=== PATIENT | female | born 1990 | race Caucasian/White ===

== ENCOUNTER 2019-02-12 21:38 | Inpatient (IN) | payer OTHER ==
[2019-02-12 23:25] LABS: ADD UMIC YES; UR ASCORBIC ACID NEGATIVE (NEGATIVE); UR BACTERIA FEW /HPF (NONE SEEN); UR BILIRUBIN (Dip) NEGATIVE (NEGATIVE); UR BLOOD (Dip) NEGATIVE (NEGATIVE); UR CLARITY CLOUDY (CLEAR); UR COLOR YELLOW (YELLOW); UR GLUCOSE (Dip) NEGATIVE (NEGATIVE); UR KETONES (Dip) NEGATIVE (NEGATIVE); UR LEUKOCYTE ESTERASE (Dip) 3+ Leu/ul (NEGATIVE); UR NITRITE (Dip) NEGATIVE (NEGATIVE); UR RBC 10 /HPF (0-5); UR SPECIFIC GRAVITY (Dip) 1.022 (1.003-1.030); UR SQUAMOUS EPITHELIAL CELL MODERATE /HPF (FEW); UR TOTAL PROTEIN (Dip) 3+ mg/dl (NEGATIVE); UR UROBILINOGEN (Dip) NEGATIVE (NEGATIVE); UR WBC 117 /HPF (0-5)
[2019-02-12 23:39] LABS: AMPHETAMINE/METHAMPHETAMINE Negative (NEGATIVE); BARBITURATES Negative (NEGATIVE); BENZODIAZEPINES Negative (NEGATIVE); CANNABINOIDS Negative (NEGATIVE); COCAINE Negative (NEGATIVE); OPIATES Negative (NEGATIVE)
[2019-02-13] MEDS ORDERED: LACTATED RINGER'S 1,000 ML IV (02:49)
[2019-02-13] MEDS ORDERED: LIDOCAINE 1% (MPF) 30 ML INJ INJ (03:00)
[2019-02-13] MEDS ORDERED: BUTORPHANOL 2 MG INJ IV ×2 (03:00)
[2019-02-13] MEDS ORDERED: METHYLERGONOVINE 0.2 MG INJ IM (03:00)
[2019-02-13] MEDS ORDERED: OXYTOCIN 30 UNITS/LR 500 ML IV ×3 (03:00)
[2019-02-13] MEDS ORDERED: AMPICILLIN 2 GM/NS (PMX) 100 ML IV (03:00)
[2019-02-13] MEDS ORDERED: CARBOPROST 250 MCG INJ IM (03:00)
[2019-02-13] MEDS ORDERED: IBUPROFEN 600 MG TAB PO (03:00)
[2019-02-13] MEDS ORDERED: MINERAL OIL LIGHT 10 ML VIAL TOP (03:00)
[2019-02-13] MEDS ORDERED: MISOPROSTOL 200 MCG TAB PR (03:00)
[2019-02-13 03:38] LABS: ADD MAN DIFF? NO
[2019-02-13 03:44] LABS: BASOPHILS % 0.3 % (0.0-2.0); EOSINOPHILS # 0.1 10^3/ul (0.0-0.5); EOSINOPHILS % 0.6 % (0.0-7.0); HEMATOCRIT 31.2 % (37.0-47.0); HEMOGLOBIN 9.7 g/dl (12.0-16.0); INR 0.89; LYMPHOCYTES # 2.9 10^3/ul (0.8-2.9); LYMPHOCYTES % 23.4 % (15.0-51.0); MEAN CORPUSCULAR HEMOGLOBIN 24.6 pg (29.0-33.0); MEAN CORPUSCULAR HGB CONC 31.1 g/dl (32.0-37.0); MEAN PLATELET VOLUME 10.1 fl (7.4-10.4); MONOCYTE # 0.7 10^3/ul (0.3-0.9); MONOCYTES % 5.2 % (0.0-11.0); NEUTROPHIL # 8.7 10^3/ul (1.6-7.5); NUCLEATED RED BLOOD CELLS% 0.2 /100WBC (0.0-0.0); PLATELET COUNT 360 10^3/UL (140-415); PROTIME 12.1 Sec (11.9-14.9); PT RATIO 0.9; RED BLOOD COUNT 3.95 10^6/ul (4.20-5.40); RED CELL DISTRIBUTION WIDTH 15.9 % (11.5-14.5)
[2019-02-13 03:44] LABS: WHITE BLOOD COUNT 12.5 10^3/ul (4.8-10.8)
[2019-02-13 03:45] LABS: PARTIAL THROMBOPLASTIN TIME 26.1 Sec (23.0-35.0)
[2019-02-13 03:51] LABS: ALANINE AMINOTRANSFERASE 18 IU/L (13-69); ALBUMIN 3.1 g/dl (3.3-4.9); ALBUMIN/GLOBULIN RATIO 0.83; ALKALINE PHOSPHATASE 160 IU/L (42-121); ANION GAP 5 (5-13); ASPARTATE AMINO TRANSFERASE 23 IU/L (15-46); BILIRUBIN,INDIRECT 0.2 mg/dl (0-1.1); BILIRUBIN,TOTAL 0.2 mg/dl (0.2-1.3); BLOOD UREA NITROGEN 18 mg/dl (7-20); CALCIUM 8.5 mg/dl (8.4-10.2); CARBON DIOXIDE 25 mmol/L (21-31); CHLORIDE 107 mmol/L (97-110); CREATININE 0.67 mg/dl (0.44-1.00); Estimated GFR > 60 mL/min (>60); GLUCOSE 108 mg/dl (70-220); SODIUM 137 mmol/L (135-144); TOTAL PROTEIN 6.8 g/dl (6.1-8.1)
[2019-02-13 05:29] LABS: HEPATITIS B SURFACE ANTIGEN NEGATIVE (NEGATIVE)
[2019-02-13 05:39] LABS: HIV 1&2 ANTIBODY NEGATIVE (NEGATIVE)
[2019-02-13] MEDS: LACTATED RINGER'S 1,000 ML IV (06:00)
[2019-02-13] MEDS ORDERED: AMPICILLIN 1 GM/NS (PMX) 50 ML IV (07:00)
[2019-02-13 15:07] LABS: RAPID PLASMA REAGIN NONREACTIVE (NR)
[2019-02-14 20:48] LABS: RUBELLA ANTIBODY - IGG <0.90 index
[2019-02-15 12:12] LABS: RUBELLA ANTIBODY - IGM <20.00 AU/mL
== END 2019-02-13 11:40 | disposition home or self-care (01) | DRG 832 ==
LOC: OBT 21:38 → L-D 21:39
DX: O48.0 Post-term pregnancy (principal); Z68.44 Body mass index [BMI] 60.0-69.9, adult
CPT/HCPCS: 76815; 76818; 80053; 80307; 81001; 83036; 85025; 85610; 85730; 86592; 86703; 86762; 86850; 86900; 86901; 87340